=== PATIENT | male | born 1995 | race Caucasian/White ===

== ENCOUNTER 2022-01-09 05:13 | Emergency (ER) | payer SELFPAY ==
[~2022-01-09] VITALS: Ht 190.5 cm; Wt 83.0 kg
[2022-01-09 05:13] VITALS: BP 153/105
--- NOTE | 2022-01-09 05:13 | NUR ---
PT TO [facility] WITH [facility]
--- NOTE | 2022-01-09 05:20 | NUR ---
Dr. Mcpherson examining patient.
[2022-01-09 05:29] VITALS: BP 147/98
--- NOTE | 2022-01-09 05:29 | NUR ---
Patient D/C to custody.
== END 2022-01-09 05:27 ==
LOC: MED 05:13
DX: V49.88XA Car occupant (driver) (passenger) injured in other specified transport accidents, initial encounter; Y93.89 Activity, other specified; Y92.89 Other specified places as the place of occurrence of the external cause; Y99.8 Other external cause status
CPT/HCPCS: 99283